=== PATIENT | female | born 1955 | race Caucasian/White ===

== ENCOUNTER 2021-02-18 06:05 | Emergency (ER) | payer MEDICARE, MEDICAID ==
[~2021-02-18] VITALS: Ht 162.6 cm; Wt 127.0 kg
[~2021-02-18 06:05] MED LIST: ALBU8HFA PO; ASCO500C18 PO; ASPI-845 PO; CARSR60C PO; CAYE450C PO; CRAN475C2 PO; FERR134T2 PO; FURO-150 PO; GLYB5TAB7 PO; LISI20TA28 PO; METF500T PO; MULT-342 PO; PHEN30SP5 NS; POTA10TA19 PO; SIMV20TA PO; ST.300CA PO; VITA1CAP PO; [UNRECOGNIZED DRUG - CODE] EACHEYE
[2021-02-18 06:12] VITALS: BP 157/87
[2021-02-18] MEDS ORDERED: normal saline 1000ML IV soln IVB ONE (06:25)
[2021-02-18] MEDS ORDERED: ondansetron/PF 4mg/2ml inj IV ONE (06:25)
[2021-02-18] MEDS ORDERED: morphine 4 MG/ML inj SYRINge IV ONE (06:25)
[2021-02-18 07:00] LABS: CLARITY,URINE CLOUDY (Clear); COLOR,URINE YELLOW (Yellow); GLUCOSE, URINE 250 mg/dl (Neg); KETONES,URINE TRACE mg/dl (Neg); LEUKOCYTE ESTERASE ,URINE SMALL (Neg); NITRITES, URINE POSITIVE (Neg); OCCULT BLOOD,URINE LARGE (Neg); PH,URINE 7.5 (4.8-8.0); PROTEIN,URINE 100 mg/dl (Neg); UROBILINOGEN,URINE 0.2 E.U/dL (0.2-1.0)
[2021-02-18 07:04] LABS: UA COLLECTION TYPE FOLEY CATH
[2021-02-18 07:06] LABS: BACTERIA,URINE 4+ /HPF (Neg); MUCUS STRANDS NONE SEEN /LPF (Neg); RBC,URINE TNTC /HPF (0-2); SQUAMOUS EPITHELIAL CELL,UR NONE SEEN /LPF (FEW); WBC CLUMPS,URINE MODERATE /HPF (NEGATIVE)
[2021-02-18 07:07] LABS: BASOPHILS % (AUTO) 0.4 % (0-1); EOSINOPHILS % (AUTO) 0.2 % (0-6); HEMATOCRIT 41.5 % (35.0-45.0); HEMOGLOBIN 13.8 g/dl (12.0-16.0); LYMPHOCYTES # (AUTO) 0.7 X10'3 (1.1-4.8); LYMPHOCYTES % (AUTO) 6.4 % (21-51); MEAN CORPUSCULAR HEMOGLOBIN 29.8 PG (27.0-31.0); MEAN CORPUSCULAR HGB CONC 33.3 g/dL (33.0-36.5); MEAN CORPUSCULAR VOLUME 89.7 FL (78-98); MEAN PLATELET VOLUME 7.5 FL (7.4-10.4); MONOCYTES # (AUTO) 0.4 X10'3 (0-0.9); MONOCYTES % (AUTO) 3.4 % (2-12); NEUTROPHILS # (AUTO) 9.2 X10'3 (1.8-7.7); NEUTROPHILS % (AUTO) 89.6 % (42-75); PLATELET COUNT 221 X10'3 (140-440); RED BLOOD COUNT 4.63 X10'6 (4.20-5.60); RED CELL DISTRIBUTION WIDTH 13.6 % (11.5-14.5); WHITE BLOOD COUNT 10.3 X10'3 (4.5-11.0)
[2021-02-18 07:13] LABS: ALANINE AMINOTRANSFERASE 30 U/L (12-78); ALBUMIN 3.4 G/DL (3.4-5.0); ALBUMIN/GLOBULIN RATIO 0.9 (1.1-1.5); ALKALINE PHOSPHATASE 81 IU/L (46-116); ANION GAP 12 (8-16); ASPARTATE AMINO TRANSFERASE 25 U/L (10-37); BILIRUBIN,TOTAL 0.4 MG/DL (0.1-1.0); BLOOD UREA NITROGEN 25 MG/DL (7-18); BUN/CREATININE RATIO 17.1 (6.6-38.0); C-REACTIVE PROTEIN 0.94 MG/DL (0.0-0.5); CALCIUM 8.9 MG/DL (8.5-10.1); CHLORIDE 102 MMOL/L (99-107); CREATININE 1.46 MG/DL (0.40-0.90); GLUCOSE 213 MG/DL (70-104); LIPASE 188 U/L (73-393); SODIUM 139 MMOL/L (135-145); TOTAL CARBON DIOXIDE 25.5 MMOL/L (24-32); TOTAL PROTEIN 7.4 G/DL (6.4-8.2); eGFR 36 ML/MIN
[2021-02-18 07:14] LABS: POTASSIUM 3.7 MMOL/L (3.5-5.1)
[2021-02-18] MEDS ORDERED: CEPH-585 PO (07:43)
[2021-02-18] MEDS ORDERED: CefTRIAXone/D5W-Rocephin 1gm 50 ML IV ONE (07:45)
== END 2021-02-18 08:26 | disposition home or self-care (01) ==
LOC: ER 06:05
DX: K43.9 Ventral hernia without obstruction or gangrene (principal); E10.8 Type 1 diabetes mellitus with unspecified complications; I10 Essential (primary) hypertension; E66.01 Morbid (severe) obesity due to excess calories; Z98.891 History of uterine scar from previous surgery; Z85.9 Personal history of malignant neoplasm, unspecified; Z79.82 Long term (current) use of aspirin; Z79.899 Other long term (current) drug therapy; Z68.42 Body mass index [BMI] 45.0-49.9, adult
CPT/HCPCS: 36415; 80053; 81001; 83690; 85025; 86140; 87077; 87088; 87186; 96374; 96375; 99284; J2270; J2405; J7030

== ENCOUNTER 2021-04-30 15:45 | Emergency (ER) | payer MEDICARE, MEDICAID ==
[~2021-04-30] VITALS: Ht 162.6 cm; Wt 113.8 kg
[~2021-04-30 15:45] MED LIST changes: +CEPH-585 PO
[2021-04-30] MEDS ORDERED: normal saline 1000ML IV soln IVB ONE (19:15)
[2021-04-30] MEDS ORDERED: ondansetron/PF 4mg/2ml inj IV ONE (19:15)
[2021-04-30 20:05] LABS: BASOPHILS % (AUTO) 0.2 % (0-1); EOSINOPHILS % (AUTO) 0.3 % (0-6); HEMATOCRIT 48.1 % (35.0-45.0); HEMOGLOBIN 16.1 g/dl (12.0-16.0); LYMPHOCYTES # (AUTO) 1.7 X10'3 (1.1-4.8); MEAN CORPUSCULAR HEMOGLOBIN 29.8 PG (27.0-31.0); MEAN CORPUSCULAR HGB CONC 33.5 g/dL (33.0-36.5); MEAN CORPUSCULAR VOLUME 89.1 FL (78-98); MEAN PLATELET VOLUME 7.6 FL (7.4-10.4); MONOCYTES # (AUTO) 1.4 X10'3 (0-0.9); MONOCYTES % (AUTO) 12.9 % (2-12); NEUTROPHILS # (AUTO) 7.7 X10'3 (1.8-7.7); NEUTROPHILS % (AUTO) 70.6 % (42-75); PLATELET COUNT 305 X10'3 (140-440); RED CELL DISTRIBUTION WIDTH 14.9 % (11.5-14.5); WHITE BLOOD COUNT 10.9 X10'3 (4.5-11.0)
[2021-04-30 20:05] LABS: CLARITY,URINE CLOUDY (Clear); COLOR,URINE YELLOW (Yellow); GLUCOSE, URINE NEGATIVE (Neg); KETONES,URINE TRACE mg/dl (Neg); LEUKOCYTE ESTERASE ,URINE MODERATE (Neg); NITRITES, URINE POSITIVE (Neg); OCCULT BLOOD,URINE SMALL (Neg); PH,URINE >=9.0 (4.8-8.0); PROTEIN,URINE >=300 mg/dl (Neg)
[2021-04-30 20:23] LABS: ALANINE AMINOTRANSFERASE 26 U/L (12-78); ALBUMIN 3.3 G/DL (3.4-5.0); ALBUMIN/GLOBULIN RATIO 0.8 (1.1-1.5); ALKALINE PHOSPHATASE 78 IU/L (46-116); ANION GAP 9 (8-16); ASPARTATE AMINO TRANSFERASE 24 U/L (10-37); BILIRUBIN,TOTAL 0.7 MG/DL (0.1-1.0); BLOOD UREA NITROGEN 40 MG/DL (7-18); BUN/CREATININE RATIO 23.5 (6.6-38.0); CALCIUM 9.3 MG/DL (8.5-10.1); CHLORIDE 94 MMOL/L (99-107); GLUCOSE 151 MG/DL (70-104); POTASSIUM 3.9 MMOL/L (3.5-5.1); SODIUM 133 MMOL/L (135-145); TOTAL CARBON DIOXIDE 29.7 MMOL/L (24-32); TOTAL PROTEIN 7.5 G/DL (6.4-8.2); eGFR 30 ML/MIN
[2021-04-30 20:26] LABS: LIPASE 494 U/L (73-393); TROPONIN I < 0.04 NG/ML (0.0-0.05)
[2021-04-30 20:27] LABS: UA COLLECTION TYPE FOLEY CATH
[2021-04-30 20:28] LABS: BACTERIA,URINE 2+ /HPF (Neg); RBC,URINE 20-50 /HPF (0-2)
[2021-04-30 20:29] LABS: SQUAMOUS EPITHELIAL CELL,UR FEW /LPF (FEW); TRIPLE PHOSPHATE CRYST 1+ /HPF (NEGATIVE)
[2021-04-30] MEDS ORDERED: CefTRIAXone/D5W-Rocephin 1gm 50 ML IV ONE (21:20)
[2021-04-30] MEDS ORDERED: loperamide 2mg capsule PO ONE (21:20)
[2021-04-30] MEDS ORDERED: ONDA4TAB6 PO (21:23)
[2021-04-30] MEDS ORDERED: LOPE2CAP PO (21:23)
[2021-04-30] MEDS ORDERED: CEPH250T PO (21:23)
[2021-04-30 23:03] VITALS: BP 155/87
[2021-05-02] MEDS ORDERED: L.AC1CAP10 PO (07:21)
[2021-05-02] MEDS ORDERED: ACET-1025 PO (07:21)
[2021-05-02] MEDS ORDERED: IBUP-1984 PO (07:21)
[2021-05-02] MEDS ORDERED: FERR325T29 PO (13:52)
[2021-05-02] MEDS ORDERED: DILT120C91 PO (13:52)
[2021-05-02] MEDS ORDERED: LINA5TAB4 PO (15:41)
== END 2021-04-30 23:04 | disposition home or self-care (01) ==
LOC: ER 15:45
DX: N39.0 Urinary tract infection, site not specified (principal); K52.9 Noninfective gastroenteritis and colitis, unspecified; R11.2 Nausea with vomiting, unspecified; E86.0 Dehydration; E11.9 Type 2 diabetes mellitus without complications; Z85.9 Personal history of malignant neoplasm, unspecified; Z98.890 Other specified postprocedural states; Z79.899 Other long term (current) drug therapy
CPT/HCPCS: 96365; 96375; 99284; J0696; J2405; J7030; 36415; 80053; 81001; 83690; 84484; 85025; 87077; 87088; 87186